=== PATIENT | female | born 1970 | race American Indian/Alaskan Native ===

== ENCOUNTER 2017-06-25 21:44 | Emergency (ER) | payer MEDICAID ==
[2017-06-25] MEDS ORDERED: MOTRIN PO ONE (23:40)
--- NOTE | 2017-06-26 00:02 | XRay Report ---
FINAL REPORT PROCEDURE: XR FOOT 2V RT TECHNIQUE: RIGHT foot radiographs, AP and lateral views. HISTORY: Right foot swelling and pain COMPARISON: No prior studies are available for comparison. FINDINGS: Fracture (s) and/or Dislocation(s): None . Alignment: Normal. Joint space(s): Normal. Soft tissues: Normal. Bone mineralization: Normal. Foreign bodies: None. Calcaneal spurring: None. IMPRESSION: Normal Examination.
--- NOTE | 2017-06-26 00:39 | Emergency Department Report ---
HPI - General Chief Complaint: Extremity Injury, Lower Time Seen by Provider: 06/26/17 00:35 - HPI HPI: This is a 46-year-old female with no prior history presents to ED complaining of right foot pain the past 2 days. Patient states she had a couple of glasses of red wine about 2 days ago. Since then she felt some pain in her foot. She denies injury fall trauma. ED Past Medical Hx - Past Medical History Previous Medical History?: No - Surgical History Past Surgical History?: No - Social History Smoking Status: Current Every Day Smoker Substance Use Type: None - Medications Home Medications: Home Medications Medication Instructions Recorded Confirmed Last Taken Type Promethazine [Phenergan] 25 mg PO Q6H PRN #10 tablet 12/05/14 Unknown Rx Allopurinol [Zyloprim] 300 mg PO QDAY #20 tablet 06/26/17 Unknown Rx Ibuprofen [Motrin] 800 mg PO Q8HR PRN #30 tablet 06/26/17 Unknown Rx ED Review of Systems ROS: Stated complaint: RT FOOT PAIN/SWOLLEN Other details as noted in HPI Constitutional: denies: chills, fever Eyes: denies: eye pain, eye discharge, vision change ENT: denies: ear pain, throat pain Respiratory: denies: cough, shortness of breath, wheezing Cardiovascular: denies: chest pain, palpitations Endocrine: no symptoms reported Gastrointestinal: denies: abdominal pain, nausea, diarrhea Genitourinary: denies: urgency, dysuria, frequency, hematuria, discharge Musculoskeletal: arthralgia. denies: back pain, joint swelling Skin: denies: rash, lesions Neurological: denies: headache, weakness, paresthesias Psychiatric: denies: anxiety, depression Hematological/Lymphatic: denies: easy bleeding, easy bruising Physical Exam - Physical Exam Vital Signs: Vital Signs 06/25/17 23:32 Temperature 98.5 F Pulse Rate 100 H Respiratory 18 Rate Blood Pressure 151/93 Blood Pressure 151/93 [Left] O2 Sat by Pulse 100 Oximetry Physical Exam: GENERAL: Alert and oriented x3, no apparent distress, Normal Gait, atraumatic. HEAD: Head is normocephalic and a-traumatic. LUNGS: Symetrical with respiration, No wheezing, no rales or crackles, CTAB. HEART: S1, S2 present, regular rate and rhythm without murmur, no rubs, no gallops. Non tender to palpation ABDOMEN: No organomegaly was noted,Positive bowel sounds, soft, and non- distended. . Nontender to palpation on all Quadrants, NO CVA tenderness. EXTREMITIES/MUSCULOSKELETAL: No cyanosis, clubbing, rash, lesions or edema. Full ROM bilaterally. UE/LE Pulses 2+ bilaterally. LE and UE 5+ strength bilaterally, all joints intact bilaterally. Right emblem fuser tender to palpation. Right toe mildly swollen, cold to touch, erythematous. NEUROLOGIC: The patient is cooperative with no focal neurologic deficits. Normal speech. Normal sensation in bilateral lower extremities, No loss of sensation, PSYCHIATRIC: Mood is congruent with affect, denies suicidal or homicidal ideations. SKIN: Warm and dry, No lesions, No ulceration or induration present. ED Course Vital Signs 06/25/17 23:32 Temperature 98.5 F Pulse Rate 100 H Respiratory 18 Rate Blood Pressure 151/93 Blood Pressure 151/93 [Left] O2 Sat by Pulse 100 Oximetry ED Medical Decision Making - Radiology Data Radiology results: report reviewed, image reviewed FINAL REPORT PROCEDURE: XR FOOT 2V RT TECHNIQUE: RIGHT foot radiographs, AP and lateral views. HISTORY: Right foot swelling and pain COMPARISON: No prior studies are available for comparison. FINDINGS: Fracture (s) and/or Dislocation(s): None . Alignment: Normal. Joint space(s): Normal. Soft tissues: Normal. Bone mineralization: Normal. Foreign bodies: None. Calcaneal spurring: None. IMPRESSION: Normal Examination. Transcribed By: [facility] [place] Dictated By: STACEY RAMIREZ Electronically Authenticated By: STACEY RAMIREZ Signed Date/Time: 06/26/17 0000 - Medical Decision Making 43-year-old patient with right foot pain. ED course: Patient received Toradol and allopurinol in ed Patient is adamant this is a gout flareup although she has no history of gout. Discussed patient is to follow-up with care physician for assessment and diagnostic for gout Vital signs are normal patient is in no acute distress Neuro Exams are intact. Critical care attestation.: If time is entered above; I have spent that time in minutes in the direct care of this critically ill patient, excluding procedure time. ED Disposition Clinical Impression: Foot pain, right Disposition: [id number] TO HOME OR SELFCARE Is pt being admited?: No Does the pt Need Aspirin: No Condition: Stable Instructions: Acute Gouty Arthritis (ED), Arthralgia (ED), Heat Pack Application (ED) Additional Instructions: Follow-up with primary care physician to be tested for gout Medications as prescribed Prescriptions: Allopurinol [Zyloprim] 300 mg PO QDAY #20 tablet Ibuprofen [Motrin] 800 mg PO Q8HR PRN #30 tablet PRN Reason: Pain Referrals: PRIMARY CAREMD [Primary Care Provider] - 3-5 Days ANISA RUSH MD [Referring] - 3-5 Days [facility] [Outside] - 3-5 Days [facility] [Outside] - 3-5 Days [facility] [Outside] - 3-5 Days [facility] [Outside] - 3-5 Days Forms: Work/School Release Form(ED) Time of Disposition: 01:39
[2017-06-26] MEDS ORDERED: ZYLOPRIM PO ONE (00:54)
[2017-06-26] MEDS ORDERED: TORADOL IM ONE (00:55)
[2017-06-26 02:22] VITALS: BP 146/92
== END 2017-06-26 02:23 | disposition home or self-care (01) ==
LOC: ED 21:44
DX: M79.672 Pain in left foot (principal); F17.200 Nicotine dependence, unspecified, uncomplicated
CPT/HCPCS: 73620; 96372; 99283; J1885